=== PATIENT | male | born 2000 | race Asian ===

== ENCOUNTER 2022-01-23 10:00 | Inpatient (IN) | payer OTHER ==
[~2022-01-23] VITALS: Ht 170.2 cm; Wt 86.4 kg
[2022-01-23 12:05] LABS: HEMATOCRIT 44.6 % (42.0-52.0); HEMOGLOBIN 14.9 g/dl (13.5-17.5); MEAN CORPUSCULAR HEMOGLOBIN 29.8 pg (27.0-33.0); MEAN CORPUSCULAR HGB CONC 33.4 g/dl (32.0-36.5); MEAN CORPUSCULAR VOLUME 89.2 fl (80.0-96.0); PLATELET COUNT, AUTOMATED 235 10^3/uL (150-450); WHITE BLOOD COUNT 6.5 10^3/uL (4.0-10.0)
[2022-01-23 12:20] LABS: RSV AMPLIFICATION NEGATIVE (NEGATIVE)
[2022-01-23 12:26] LABS: AMPHETAMINES LEVEL URINE NEGATIVE (NEGATIVE); BARBITURATES URINE NEGATIVE (NEGATIVE); BENZODIAZEPINES URINE NEGATIVE (NEGATIVE); CANNABINOIDS URINE NEGATIVE (NEGATIVE); COCAINE METABOLITE URINE NEGATIVE (NEGATIVE); METHADONE URINE NEGATIVE (NEGATIVE); OPIATES URINE NEGATIVE (NEGATIVE); PHENCYCLIDINE URINE NEGATIVE (NEGATIVE)
[2022-01-23 12:28] LABS: ACETAMINOPHEN LEVEL < 2.0 UG/ML (10.0-30.0); ALBUMIN 4.1 GM/DL (3.2-5.2); ALT/SGPT 37 U/L (12-78); BILIRUBIN,DIRECT 0.1 MG/DL (0.0-0.2); BILIRUBIN,TOTAL 0.3 MG/DL (0.2-1.0); BLOOD UREA NITROGEN 10 MG/DL (7-18); CALCIUM LEVEL 9.1 MG/DL (8.5-10.1); CARBON DIOXIDE LEVEL 28 MEQ/L (21-32); CHLORIDE LEVEL 107 MEQ/L (98-107); CREATININE FOR GFR 0.88 MG/DL (0.70-1.30); ETHYL ALCOHOL (ETHANOL) < 0.003 % (0.000-0.010); GLUCOSE, FASTING 98 MG/DL (70-100); POTASSIUM SERUM 3.9 MEQ/L (3.5-5.1); SALICYLATE LEVEL < 1.7 MG/DL (5.0-30.0); SODIUM LEVEL 139 MEQ/L (136-145); TOTAL PROTEIN 7.2 GM/DL (6.4-8.2)
[2022-01-23] MEDS ORDERED: HOME MED LIST COMPLETE! XX SCH (13:55)
[2022-01-28] MEDS ORDERED: MOM 30ML SUSPENSION UDC PO PRN (13:10)
[2022-01-28] MEDS ORDERED: MAALOX 30 ML SUSP *UDC PO PRN (13:10)
[2022-01-28] MEDS ORDERED: OLANZapine ORAL DISINTEGRATING TAB 5MG PO PRN (13:10)
[2022-01-28] MEDS ORDERED: IBUPROFEN 400MG TAB PO PRN (13:10)
[2022-01-28 15:10] VITALS: BP 148/66
[2022-01-28] MEDS ORDERED: traZODone 50 MG TAB PO PRN (23:30)
[2022-01-29 06:38] VITALS: BP 118/73
[2022-01-29 16:37] VITALS: BP 131/71
[2022-01-30 06:32] VITALS: BP 116/71
[2022-01-30 16:15] VITALS: BP 128/82
[2022-01-31 06:28] VITALS: BP 118/73
[2022-01-31 06:33] VITALS: BP 132/79
== END 2022-01-31 11:06 | disposition home or self-care (01) | DRG 881 ==
LOC: M ED 10:00 → EDBD 10:00 → UNDOADMIN 10:01 → M ED INP 10:01 → M PSY 01-28 15:05
PROVIDERS: ADMIT Psychiatry & Neurology Psychiatry; ATTEND Psychiatry & Neurology Psychiatry
DX: F32.A Depression, unspecified (principal); R45.851 Suicidal ideations; Z56.6 Other physical and mental strain related to work; Z63.8 Other specified problems related to primary support group; F43.20 Adjustment disorder, unspecified; Z20.822 Contact with and (suspected) exposure to COVID-19